=== PATIENT | male | born 1985 | race Two or more races ===

== ENCOUNTER 2016-11-22 09:35 | Emergency (ER) | payer SELFPAY ==
[2016-11-22 10:14] LABS: SPECIFIC GRAVITY 1.025 (1.001-1.030); URINE BILIRUBIN NEGATIVE (NEGATIVE); URINE BLOOD 4+ (NEGATIVE); URINE GLUCOSE (UA) NEGATIVE (NEGATIVE); URINE LEUKOCYTE ESTERASE 2+ (NEGATIVE); URINE NITRITE NEGATIVE (NEGATIVE); URINE PROTEIN 1+ (NEGATIVE); URINE UROBILINOGEN NORMAL (0-1 mg/dl)
[2016-11-22 10:19] LABS: URINE APPEARANCE HAZY; URINE COLOR YELLOW
[2016-11-22 10:28] LABS: URINE WBC >100 /hpf
[2016-11-22 10:29] LABS: URINE BACTERIA 1+; URINE EPITHELIAL CELLS 0-1 /hpf; URINE MUCUS 1+
[2016-11-22] MEDS ORDERED: CEFTRIAXONE SODIUM 250 MG VIAL ONE (11:03)
[2016-11-22] MEDS ORDERED: AZITHROMYCIN 250 MG TABLET ONE (11:03)
[2016-11-23 15:09] LABS: CHLAMYDIA BD Negative (Negative); N.GONORRHOEAE BD Positive (Negative); SOURCE Urine (())
== END 2016-11-22 11:33 | disposition home or self-care (01) ==
LOC: ED 09:35
DX: N34.2 Other urethritis (principal); F17.210 Nicotine dependence, cigarettes, uncomplicated
CPT/HCPCS: 87491; 87591; 87086; 81001; 99283 ×2; 96372; J0696; A9270